=== PATIENT | female | born 2000 | race Hispanic/Latino ===

== ENCOUNTER 2020-08-06 02:07 | Emergency (ER) | payer SELFPAY ==
[~2020-08-06] VITALS: Ht 154.9 cm; Wt 44.5 kg
[2020-08-06] MEDS ORDERED: ACETAMINOPHEN 325 MG TAB PO ONE (02:30)
[2020-08-06] MEDS ORDERED: SODIUM CHLORIDE 0.9% 1000ML 1,000 ML IV ONE (02:30)
[2020-08-06] MEDS ORDERED: ONDANSETRON HCL INJ 2MG/ML 2ML 2 MG/ML VIAL IV PRN (02:30)
[2020-08-06] MEDS ORDERED: SODIUM CHLORIDE 0.9% 1000ML 1,000 ML IV SCH (02:30)
[2020-08-06] MEDS ORDERED: ACETAMINOPHEN 325 MG TAB ONE (02:35)
[2020-08-06] MEDS ORDERED: ONDANSETRON HCL INJ 2MG/ML 2ML 2 MG/ML VIAL ONE (02:35)
[2020-08-06 02:54] LABS: BASOPHILS # (AUTO) 0.1 (0.0-0.1); BASOPHILS % 0.6 % (0.0-1.0); EOSINOPHILS # (AUTO) 0.4 (0.0-0.4); EOSINOPHILS % 2.8 % (0.0-6.0); HEMATOCRIT 42.1 % (34.2-44.1); HEMOGLOBIN 14.3 g/dL (12.0-16.0); LYMPHOCYTES # (AUTO) 1.6 (1.0-3.2); MEAN CORPUSCULAR HEMOGLOBIN 29.7 pg (28-32); MEAN CORPUSCULAR VOLUME 87.5 fL (81-99); MONOCYTES # (AUTO) 0.7 (0.2-0.8); MONOCYTES % 5.6 % (4.4-11.3); NEUTROPHILS # (AUTO) 9.7 (2.1-6.9); NEUTROPHILS % 77.7 % (38.7-80.0); PLATELET COUNT 215 x10e3/uL (140-360); RED BLOOD COUNT 4.81 x10e6/uL (3.6-5.1); RED CELL DISTRIBUTION WIDTH 11.8 % (11.7-14.4)
[2020-08-06 03:09] LABS: LIPASE 28 U/L (8-78)
[2020-08-06 03:13] LABS: ALANINE AMINOTRANSFERASE 11 IU/L (0-55); ALBUMIN 4.8 g/dL (3.5-5.0); ALBUMIN/GLOBULIN RATIO 1.6 (0.8-2.0); ALKALINE PHOSPHATASE 84 IU/L (40-150); ANION GAP 13.4 mmol/L (8-16); BLOOD UREA NITROGEN 12 mg/dL (7-26); BUN/CREATININE RATIO 16 (6-25); CALCIUM 8.9 mg/dL (8.4-10.2); CARBON DIOXIDE 24 mmol/L (22-29); CHLORIDE 101 mmol/L (98-107); CREATININE, SERUM 0.73 mg/dL (0.57-1.11); EST GLOMERULAR FILTRATION RATE > 60 ML/MIN (60-); GLUCOSE 92 mg/dL (74-118); POTASSIUM 3.4 mmol/L (3.5-5.1); SODIUM 135 mmol/L (136-145)
[2020-08-06 03:14] LABS: BILIRUBIN,URINE SMALL (NEGATIVE); CLARITY,URINE SL CLOUDY (CLEAR); COLOR,URINE YELLOW (YELLOW); KETONES,URINE 2+ (NEGATIVE); LEUKOCYTE ESTERASE ,URINE NEGATIVE (NEGATIVE); NITRITE,URINE NEGATIVE (NEGATIVE); PROTEIN,URINE DIPSTICK NEGATIVE (NEGATIVE); URINE UROBILINOGEN 0.2 mg/dL (0.2 - 1)
[2020-08-06 03:15] LABS: BACTERIA,URINE MANY /HPF; EPITHELIAL CELLS,URINE FEW /LPF; MUCUS,URINE MODERATE (RARE); WBC,URINE (MAN) 0-5 /HPF (0-5)
[2020-08-06 03:17] LABS: HCG,QUANTITATIVE < 1.20 mIU/mL (0-10)
--- NOTE | 2020-08-06 03:17 | Emergency Department Note ---
History of Present Illnes History of Present Illness Chief Complaint: Headache History of Present Illness This is a 20 year old female Chief Complaint Comment 20 Y/O FEMALE PT AAOX3 PRESENTS TO THE ER C/O NAUSEA AND PRESSURE BEHIND RT EYE AND ONSET YESTERDAY AROUND 0300; REPORTS NAUSEA WORSENS WHEN STANDING UP AND LAYINF DOWN; PT ALSO REPORTS EPIGASTRIC ABD PAIN; PT CURRENTLY ON MENSTRAL CYCLE; DENIES BURNING WITH URINATION OR DYSURIA. Historian: Patient Arrival Mode: Car Cow Tester Required: No Onset (how long ago): day(s) (1) Location: head, abdomen Quality: pain Radiation: Reports non-radiation Severity: mild Onset quality: unable to specify Duration (how long): day(s) (1) Timing of current episode: intermittent Progression: unchanged Chronicity: new Context: Denies recent illness, Denies recent surgery Relieving factors: none Exacerbating factors: none Associated symptoms: Reports denies other symptoms Treatments prior to arrival: none Past Medical/Family History Physician Review I have reviewed the patient's past medical and family history. Any updates have been documented here. Past Medical History Recent Fever: No Clinical Suspicion of Infectio: No New/Unexplained Change in Ment: No Past Medical History: Anxiety, Depression Past Surgical History: None Social History Smoking Cessation: Current every day smoker Alcohol Use: None Any Illegal Drug Use: Yes (MARIJUANA) Physically hurt or threatened: No Other Any Pre-Existing Lines (PICC,: No Review of Systems Review of Systems Constitutional: Reports no symptoms EENTM: Reports no symptoms Cardiovascular: Reports no symptoms Respiratory: Reports no symptoms Gastrointestinal: Reports as per HPI, Reports abdominal pain, Reports diarrhea, Reports nausea, Reports vomiting Genitourinary: Reports no symptoms Musculoskeletal: Reports no symptoms Integumentary: Reports no symptoms Neurological: Reports headache Psychological: Reports no symptoms Endocrine: Reports no symptoms Hematological/Lymphatic: Reports no symptoms Physical Exam Related Data Allergies: Coded Allergies: No Known Allergies (Unverified , 08/06/20) Triage Vital Signs Vital Signs Date Time Temp Pulse Resp B/P (MAP) Pulse Ox O2 Delivery O2 Flow Rate FiO2 08/06/20 02:11 98.1 80 18 120/78 100 Room Air Vital signs reviewed: Yes Physical Exam CONSTITUTIONAL Constitutional: Present well-developed, Present well-nourished HENT HENT: Present normocephalic, Present atraumatic, Present oropharynx clear/moist, Present nose normal HENT L/R: Present left ext ear normal, Present right ext ear normal EYES Eyes: Reports PERRL, Reports conjunctivae normal NECK Neck: Present ROM normal PULMONARY Pulmonary: Present effort normal, Present breath sounds normal CARDIOVASCULAR Cardiovascular: Present regular rhythm, Present heart sounds normal, Present capillary refill normal, Present normal rate GASTROINTESTINAL Abdominal: Present soft, Present nontender, Present bowel sounds normal GENITOURINARY Genitourinary: Present exam deferred SKIN Skin: Present warm, Present dry MUSCULOSKELETAL Musculoskeletal: Present ROM normal NEUROLOGICAL Neurological: Present alert, Present oriented x 3, Present no gross motor or sensory deficits PSYCHOLOGICAL Psychological: Present mood/affect normal, Present judgement normal Results Laboratory Result Diagram: 08/06/20 0218 Laboratory Laboratory Tests Test 08/06/20 02:18 White Blood Count 12.52 x10e3/uL (4.8-10.8) Red Blood Count 4.81 x10e6/uL (3.6-5.1) Hemoglobin 14.3 g/dL (12.0-16.0) Hematocrit 42.1 % (34.2-44.1) Mean Corpuscular Volume 87.5 fL (81-99) Mean Corpuscular Hemoglobin 29.7 pg (28-32) Mean Corpuscular Hemoglobin Concent 34.0 g/dL (31-35) Red Cell Distribution Width 11.8 % (11.7-14.4) Platelet Count 215 x10e3/uL (140-360) Neutrophils (%) (Auto) 77.7 % (38.7-80.0) Lymphocytes (%) (Auto) 13.0 % (18.0-39.1) Monocytes (%) (Auto) 5.6 % (4.4-11.3) Eosinophils (%) (Auto) 2.8 % (0.0-6.0) Basophils (%) (Auto) 0.6 % (0.0-1.0) Neutrophils # (Auto) 9.7 (2.1-6.9) Lymphocytes # (Auto) 1.6 (1.0-3.2) Monocytes # (Auto) 0.7 (0.2-0.8) Eosinophils # (Auto) 0.4 (0.0-0.4) Basophils # (Auto) 0.1 (0.0-0.1) Absolute Immature Granulocyte (auto 0.04 x10e3/uL (0-0.1) Urine Color Yellow (YELLOW) Urine Clarity Sl cloudy (CLEAR) Urine pH 5.5 (5 - 7) Urine Specific [place] 1.030 (1.010-1.025) Urine Protein Negative (NEGATIVE) Urine Glucose (UA) Negative (NEGATIVE) Urine Ketones 2+ (NEGATIVE) Urine Blood 2+ (NEGATIVE) Urine Nitrite Negative (NEGATIVE) Urine Bilirubin Small (NEGATIVE) Urine Urobilinogen 0.2 mg/dL (0.2 - 1) Urine Leukocyte Esterase Negative (NEGATIVE) Urine RBC 11-20 /HPF (0-5) Urine WBC 0-5 /HPF (0-5) Urine Epithelial Cells Few /LPF (NONE) Urine Bacteria Many /HPF (NONE) Urine Mucus Moderate (RARE) Lipase 28 U/L (8-78) Lab results reviewed: Yes Imaging Imaging results reviewed: Yes Assessment & Plan Medical Decision Making MDM 20-year-old female presents for multiple complaints including diarrhea, headache, nonfocal abdominal pain. Examination shows no abdominal tenderness, cranial nerves II through XII are intact, no focal neurologic deficits. Vital s igns stable, within normal limits. Initial differential includes urinary tract infection versus gastroenteritis versus functional abdominal pain among others. She was given Tylenol and 1 L fluid bolus and feels much better. Urinalysis shows bacteria. She states this feels similar to when she has had a urinary tract infection past. We'll treat with Keflex and Zofran at home. Instructed her to return to the emergency department for any new or worsening symptoms or otherwise follow-up with her primary doctor. Patient's appropriate for discharge. Reassessment Reassessment time: 03:40 Reassessment Well appearing, NAD Assessment & Plan Final Impression: (1) Diarrhea (2) UTI (urinary tract infection) Depart Disposition: HOME, SELF-CARE Last Vital Signs Date Time Temp Pulse Resp B/P (MAP) Pulse Ox O2 Delivery O2 Flow Rate FiO2 08/06/20 02:58 74 16 114/76 100 Room Air 08/06/20 02:11 98.1 Medications in the ED Ondansetron HCl 4 mg Q4H PRN IV NAUSEA AND VOMITING Last administered on 08/06/20at 02:36; Admin Dose 4 MG; Start 08/06/20 at 02:30; Stop 09/05/20 at 02:29 Sodium Chloride 1,000 ml @ 100 mls/hr Q10H IV ; Start 08/06/20 at 02:30; Stop 08/06/20 at 02:28; Status DC Acetaminophen 650 mg ONCE ONCE PO Last administered on 08/06/20at 02:36; Admin Dose 650 MG; Start 08/06/20 at 02:30; Stop 08/06/20 at 02:39; Status DC Sodium Chloride 1,000 ml @ 999 mls/hr Q1H1M ONCE IV Last administered on 08/06/20at 02:36; Admin Dose 999 MLS/HR; Start 08/06/20 at 02:30; Stop 08/06/20 at 03:30 Ondansetron HCl 4 mg STK-MED ONCE .ROUTE ; Start 08/06/20 at 02:35; Stop 08/06/20 at 02:39; Status DC Acetaminophen 650 mg STK-MED ONCE .ROUTE ; Start 08/06/20 at 02:35; Stop 08/06/20 at 02:39; Status DC NARDA LU MD Aug 06, 2020 03:17
[2020-08-06 03:37] VITALS: BP 125/76
== END 2020-08-06 03:49 | disposition home or self-care (01) ==
LOC: ER 02:22
DX: R19.7 Diarrhea, unspecified (principal); N39.0 Urinary tract infection, site not specified; R11.2 Nausea with vomiting, unspecified; F41.9 Anxiety disorder, unspecified; F17.210 Nicotine dependence, cigarettes, uncomplicated
CPT/HCPCS: 36415; 80053; 81001; 83690; 84702; 85025; 87086; 99284; J2405; J7030

== ENCOUNTER 2021-03-08 13:55 | Emergency (ER) | payer SELFPAY ==
[~2021-03-08] VITALS: Ht 152.4 cm; Wt 44.5 kg
[2021-03-08 14:23] LABS: BASOPHILS # (AUTO) 0.1 (0.0-0.1); BASOPHILS % 0.8 % (0.0-1.0); EOSINOPHILS # (AUTO) 0.7 (0.0-0.4); EOSINOPHILS % 7.5 % (0.0-6.0); HEMATOCRIT 43.2 % (34.2-44.1); HEMOGLOBIN 14.8 g/dL (12.0-16.0); LYMPHOCYTES # (AUTO) 2.1 (1.0-3.2); MEAN CORPUSCULAR HEMOGLOBIN 30.7 pg (28-32); MEAN CORPUSCULAR HGB CONC 34.3 g/dL (31-35); MEAN CORPUSCULAR VOLUME 89.6 fL (81-99); MONOCYTES # (AUTO) 0.4 (0.2-0.8); NEUTROPHILS # (AUTO) 5.5 (2.1-6.9); NEUTROPHILS % 63.5 % (38.7-80.0); PLATELET COUNT 198 x10e3/uL (140-360); RED BLOOD COUNT 4.82 x10e6/uL (3.6-5.1); RED CELL DISTRIBUTION WIDTH 12.1 % (11.7-14.4)
[2021-03-08] MEDS ORDERED: ONDANSETRON HCL INJ 2MG/ML 2ML 2 MG/ML VIAL IV NR (14:30)
[2021-03-08 14:31] LABS: CLARITY,URINE CLEAR (CLEAR); COLOR,URINE YELLOW (YELLOW); LEUKOCYTE ESTERASE ,URINE NEGATIVE (NEGATIVE)
[2021-03-08 14:32] LABS: EPITHELIAL CELLS,URINE FEW /LPF; KETONES,URINE 2+ (NEGATIVE); NITRITE,URINE NEGATIVE (NEGATIVE); PROTEIN,URINE DIPSTICK NEGATIVE (NEGATIVE); RBC,URINE 0-5 /HPF (0-5); URINE UROBILINOGEN 0.2 mg/dL (0.2 - 1)
[2021-03-08 14:47] LABS: ALANINE AMINOTRANSFERASE 9 IU/L (0-55); ALBUMIN 4.6 g/dL (3.5-5.0); ALBUMIN/GLOBULIN RATIO 1.4 (0.8-2.0); ALKALINE PHOSPHATASE 73 IU/L (40-150); ANION GAP 13.5 mmol/L (8-16); BLOOD UREA NITROGEN 10 mg/dL (7-26); BUN/CREATININE RATIO 14 (6-25); CALCIUM 8.9 mg/dL (8.4-10.2); CARBON DIOXIDE 23 mmol/L (22-29); CHLORIDE 106 mmol/L (98-107); EST GLOMERULAR FILTRATION RATE > 60 ML/MIN (60-); GLUCOSE 98 mg/dL (74-118); POTASSIUM 3.5 mmol/L (3.5-5.1); SODIUM 139 mmol/L (136-145)
[2021-03-08 15:05] LABS: BACTERIA,URINE MODERATE /HPF
[2021-03-08] MEDS ORDERED: ONDANSETRON ODT4 MG PO (16:28)
[2021-03-08] MEDS ORDERED: CEPHALEXIN500 MG PO (16:28)
[2021-03-08] MEDS ORDERED: SODIUM CHLORIDE 0.9% 50ML 50 ML ONE (18:32)
[2021-03-08] MEDS ORDERED: IOPAMIDOL 370 MG/ML 200 ML INFUS..BTL INJ ONE (18:32)
== END 2021-03-08 16:43 | disposition home or self-care (01) ==
LOC: ER 14:17
DX: R10.31 Right lower quadrant pain (principal); R11.2 Nausea with vomiting, unspecified; N39.0 Urinary tract infection, site not specified; F41.9 Anxiety disorder, unspecified; F32.9 Major depressive disorder, single episode, unspecified
CPT/HCPCS: 36415; 74177; 80053; 81001; 81025; 85025; 99284; J2405; Q9967

== ENCOUNTER 2024-01-21 21:17 | Emergency (ER) | payer SELFPAY ==
[~2024-01-21] VITALS: Ht 154.9 cm; Wt 44.5 kg
[~2024-01-21 21:17] MED LIST: CEPHALEXIN500 MG PO; ONDANSETRON ODT4 MG PO
[2024-01-21 21:55] LABS: BASOPHILS % 0.2 % (0.0-1.0); EOSINOPHILS # (AUTO) 0.3 (0.0-0.4); EOSINOPHILS % 2.2 % (0.0-6.0); HEMOGLOBIN 14.6 g/dL (12.0-16.0); LYMPHOCYTES # (AUTO) 1.6 (1.0-3.2); LYMPHOCYTES % 10.7 % (18.0-39.1); MEAN CORPUSCULAR HEMOGLOBIN 29.4 pg (28-32); MEAN CORPUSCULAR HGB CONC 33.2 g/dL (31-35); MEAN CORPUSCULAR VOLUME 88.5 fL (81-99); MONOCYTES # (AUTO) 0.5 (0.2-0.8); MONOCYTES % 3.4 % (4.4-11.3); NEUTROPHILS # (AUTO) 12.7 (2.1-6.9); NEUTROPHILS % 83.2 % (38.7-80.0); PLATELET COUNT 214 x10e3/uL (140-360); RED BLOOD COUNT 4.97 x10e6/uL (3.6-5.1); RED CELL DISTRIBUTION WIDTH 12.1 % (11.7-14.4); WHITE BLOOD COUNT 15.19 x10e3/uL (4.8-10.8)
[2024-01-21] MEDS: SODIUM CHLORIDE 0.9% 1000ML 2,000 ML IV STA (21:58)
[2024-01-21] MEDS: ONDANSETRON HCL INJ 2MG/ML 2ML 2 MG/ML VIAL IV STA (21:58)
[2024-01-21 22:29] LABS: ALBUMIN 4.4 g/dL (3.5-5.0); ALBUMIN/GLOBULIN RATIO 1.2 (0.8-2.0); ANION GAP 17.3 mmol/L (8-16); BILIRUBIN,TOTAL 1.7 mg/dL (0.2-1.2); CALCIUM 9.4 mg/dL (8.4-10.2); CREATININE, SERUM 0.74 mg/dL (0.57-1.11); POTASSIUM 4.3 mmol/L (3.5-5.1); TOTAL PROTEIN 8.1 g/dL (6.5-8.1)
[2024-01-21 22:49] LABS: CLARITY,URINE CLEAR (CLEAR); COLOR,URINE YELLOW (YELLOW); PH,URINE 5.5 (5 - 7)
[2024-01-21 22:50] LABS: BILIRUBIN,URINE SMALL (NEGATIVE); GLUCOSE, URINE NEGATIVE (NEGATIVE); KETONES,URINE 2+ (NEGATIVE); LEUKOCYTE ESTERASE ,URINE NEGATIVE (NEGATIVE); NITRITE,URINE NEGATIVE (NEGATIVE); PREGNANCY TEST, URINE NEGATIVE (NEGATIVE); PROTEIN,URINE DIPSTICK TRACE (NEGATIVE); URINE UROBILINOGEN 0.2 mg/dL (0.2 - 1)
[2024-01-21 22:51] LABS: AMPHETAMINES SCREEN,URINE NEGATIVE (NEGATIVE); BENZODIAZEPINES SCREEN,URINE NEGATIVE (NEGATIVE); CANNABINOIDS SCREEN,URINE POSITIVE (NEGATIVE); METHADONE SCREEN, URINE NEGATIVE (NEGATIVE); OPIATES SCREEN,URINE NEGATIVE (NEGATIVE); PHENCYCLIDINE SCREEN,URINE NEGATIVE (NEGATIVE)
[2024-01-21 22:55] LABS: WBC,URINE (MAN) 0-5 /HPF (0-5)
[2024-01-21 22:56] LABS: BACTERIA,URINE MANY /HPF; EPITHELIAL CELLS,URINE MODERATE /LPF; RBC,URINE 0-5 /HPF (0-5)
[2024-01-21] MEDS: ACETAMINOPHEN 325 MG TAB PO ONE (23:00)
[2024-01-21] MEDS ORDERED: IOPAMIDOL 370 MG/ML 100 ML INFUS..BTL INJ ONE (23:06)
[2024-01-22] MEDS ORDERED: ONDANSETRON ODT4 MG PO (00:22)
[2024-01-22] MEDS ORDERED: PEPCID AC10 MG PO (00:22)
[2024-01-22] MEDS ORDERED: AZITHROMYCIN250 MG PO (00:22)
[2024-01-22] MEDS ORDERED: PREDNISONE20 MG PO (00:22)
[2024-01-22 00:35] VITALS: O2SAT 98
== END 2024-01-22 00:35 | disposition home or self-care (01) ==
LOC: ER 21:20
DX: R11.2 Nausea with vomiting, unspecified (principal); R09.81 Nasal congestion; R10.13 Epigastric pain; R10.31 Right lower quadrant pain; F41.9 Anxiety disorder, unspecified
CPT/HCPCS: 36415; 74177; 80053; 80307; 81001; 81025; 83690; 85025; 99284; J2405; J7030; Q9967